=== PATIENT | female | born 1945 | race African-American/Black ===

== ENCOUNTER 2017-09-28 09:13 | Emergency (ER) | payer OTHER, MEDICAID ==
[~2017-09-28] VITALS: Ht 162.6 cm; Wt 65.0 kg
[2017-09-28] MEDS ORDERED: OXYCODONE HCL/ACETAMINOPHEN 5/325MG TABLET PO ONE (09:45)
[2017-09-28 11:00] VITALS: BP 140/82
== END 2017-09-28 11:19 | disposition home or self-care (01) ==
LOC: ER 09:21
DX: M54.2 Cervicalgia (principal); E11.9 Type 2 diabetes mellitus without complications; I10 Essential (primary) hypertension; V49.9XXA Car occupant (driver) (passenger) injured in unspecified traffic accident, initial encounter; Y93.9 Activity, unspecified; Y92.410 Unspecified street and highway as the place of occurrence of the external cause
CPT/HCPCS: 72125; 99284

== ENCOUNTER 2021-08-10 18:16 | Inpatient (IN) | payer MEDICAID, OTHER ==
[~2021-08-10] VITALS: Ht 170.2 cm; Wt 100.0 kg
[2021-08-10] MEDS ORDERED: ASPIRIN 325MG TABLET PO ONE (22:00)
[2021-08-10 22:32] LABS: HEMATOCRIT. 37.1 % (36.0-48.0); HEMOGLOBIN. 11.8 g/dL (12.0-16.0); LYMPHOCYTES % 9.4 % (20.0-50.0); MEAN CORPUSCULAR HEMOGLOBIN 29.6 pg (28.0-32.0); MEAN PLATELET VOLUME 7.8 fl (7.4-10.4); MONOCYTES % 5.4 % (2.0-8.0); NEUTROPHILS % 83.2 % (40.0-76.0); PLATELET 214 x1000/uL (130-400); RED BLOOD CELL COUNT 3.99 mill/uL (4.2-5.4); RED CELL DISTRIBUTION WIDTH 16.9 % (11.6-14.6)
[2021-08-10 22:41] LABS: PROTHROMBIN TIME 10.3 sec (9.6-11.0)
[2021-08-10 22:46] LABS: CHLORIDE 107 mEq/L (98-107)
[2021-08-11] MEDS ORDERED: ACETAMINOPHEN 325MG TABLET PO SCH (01:00)
[2021-08-11 07:00] VITALS: BP 183/77
== END 2021-08-11 08:58 | disposition left against medical advice (07) | DRG 280 ==
LOC: ER 18:16 → MICUSO 08-11 01:19 → EDBEDREQDT 08-11 01:23 → EDBEDREQTM 08-11 01:23 → EDBEDREQ 08-11 01:23 → CANBEDREQ 08-11 07:55 → MICUSO 08-11 08:53 → 7EST 08-11 08:54 → MICUSO 08-11 08:55
PROVIDERS: ADMIT Internal Medicine; ATTEND Internal Medicine
DX: I21.4 Non-ST elevation (NSTEMI) myocardial infarction (principal); J96.00 Acute respiratory failure, unspecified whether with hypoxia or hypercapnia; N18.6 End stage renal disease; E44.1 Mild protein-calorie malnutrition; I13.11 Hypertensive heart and chronic kidney disease without heart failure, with stage 5 chronic kidney disease, or end stage renal disease; E11.22 Type 2 diabetes mellitus with diabetic chronic kidney disease; E78.5 Hyperlipidemia, unspecified; R74.01 Elevation of levels of liver transaminase levels; E87.70 Fluid overload, unspecified; D64.9 Anemia, unspecified; Z53.29 Procedure and treatment not carried out because of patient's decision for other reasons; F41.9 Anxiety disorder, unspecified; Z99.2 Dependence on renal dialysis; Z82.49 Family history of ischemic heart disease and other diseases of the circulatory system; Z83.3 Family history of diabetes mellitus; Z68.34 Body mass index [BMI] 34.0-34.9, adult; R79.89 Other specified abnormal findings of blood chemistry
CPT/HCPCS: 36415; 71045; 80053; 83880; 84484; 85025; 93005; 99285

== ENCOUNTER 2023-09-26 23:15 | Inpatient (IN) | payer OTHER, MEDICARE ==
[~2023-09-26] VITALS: Ht 160 cm; Wt 63.0 kg
[2023-09-26] MEDS ORDERED: ADENOSINE 3 MG/ML 2ML VIAL IV ONE (23:45)
[2023-09-26] MEDS ORDERED: ASPIRIN 81MG TABLET PO ONE (23:45)
[2023-09-27] MEDS ORDERED: ADENOSINE 3 MG/ML 2ML VIAL IV ONE (00:30)
[2023-09-27 00:32] LABS: BASOPHILS % 2.8 % (0.0-2.0); EOSINOPHILS % 5.7 % (0.0-5.0); HEMOGLOBIN. 11.7 g/dL (12.0-16.0); LYMPHOCYTES % 15.4 % (20.0-50.0); MEAN CORPUSCULAR HEMOGLOBIN 31.2 pg (28.0-32.0); MEAN CORPUSCULAR HGB CONC 31.6 g/dL (31.0-37.0); MEAN CORPUSCULAR VOLUME 98.8 fL (81.0-99.0); MEAN PLATELET VOLUME 9.3 fl (7.4-10.4); NEUTROPHILS % 69.1 % (40.0-76.0); PLATELET 159 x1000/uL (130-400); RED BLOOD CELL COUNT 3.75 mill/uL (4.2-5.4); RED CELL DISTRIBUTION WIDTH 14.5 % (11.6-14.6); WHITE BLOOD COUNT 4.5 x1000/uL (4.5-11.0)
[2023-09-27 02:23] LABS: SODIUM 139 mEq/L (136-145)
[2023-09-27 02:24] LABS: CARBON DIOXIDE 28 mEq/L (21-32); CHLORIDE 101 mEq/L (98-107); GLUCOSE 197 mg/dL (70-105); POTASSIUM 4.8 mEq/L (3.5-5.1); UREA NITROGEN BLOOD 62 mg/dL (9-23)
[2023-09-27 02:25] LABS: ALBUMIN 3.9 g/dL (3.2-4.8); ASPARTATE AMINOTRANSFERASE 56 IU/L (<34); BILIRUBIN TOTAL 0.3 mg/dL (0.1-1.0); CALCIUM 8.6 mg/dL (8.7-10.4); PROTEIN TOTAL 7.3 g/dL (6.0-8.3)
[2023-09-27 02:26] LABS: ALANINE AMINOTRANSFERASE 40 IU/L (10-49)
[2023-09-27 02:35] LABS: TROPONIN I HIGH SENSITIVITY 41 ng/L (3.0-34)
[2023-09-27] MEDS ORDERED: MORPHINE SULFATE 2 MG/ML CPJ (NOT FOR IM USE) IV ONE (04:00)
[2023-09-27] MEDS ORDERED: IPRATROPIUM/ALBUTEROL 0.5-3(2.5)MG/3ML NEB HHN NR (04:15)
[2023-09-27] MEDS ORDERED: ONDANSETRON HCL 4MG/2ML INJ IV PRN (04:30)
[2023-09-27] MEDS ORDERED: IPRATROPIUM/ALBUTEROL 0.5-3(2.5)MG/3ML NEB HHN PRN (04:30)
[2023-09-27] MEDS ORDERED: MAGNESIUM/ALUMINUM HYDROXIDE/SIMETHICONE 30ML UDC PO PRN (04:30)
[2023-09-27] MEDS ORDERED: DOCUSATE SODIUM 100MG CAPSULE PO PRN (04:30)
[2023-09-27] MEDS ORDERED: ACETAMINOPHEN 650MG/20.3ML UDC GT PRN ×2 (04:30)
[2023-09-27] MEDS ORDERED: CLONIDINE 0.1MG TABLET PO PRN (04:30)
[2023-09-27] MEDS ORDERED: NITROGLYCERIN 0.4MG TABLET SL SL PRN (04:45)
[2023-09-27 04:50] VITALS: PULSE 81; RESP 18
[2023-09-27] MEDS ORDERED: DEXTROSE 50% WATER 50ML SYRINGE IV PRN (05:00)
[2023-09-27 05:18] LABS: INR 1.1; PROTHROMBIN TIME 11.4 sec (9.6-11.0)
[2023-09-27] MEDS: IPRATROPIUM/ALBUTEROL 0.5-3(2.5)MG/3ML NEB HHN SCH ×2 (05:23→20:44)
[2023-09-27] MEDS ORDERED: ENOXAPARIN 60MG/0.6ML SYR SUBCUT NR (05:30)
[2023-09-27] MEDS ORDERED: PANTOPRAZOLE 40MG DR TABLET PO SCH (06:30)
[2023-09-27 08:00] VITALS: BP_SYST 138; BP_DIAS 55; BP_DIAS 56; PULSE 61; PULSE 69; RESP 18; TEMP 97.3; TEMP 97.5
[2023-09-27 08:21] LABS: CREATINE KINASE 151 IU/L (34-145); IRON 32 ug/dL (50-170); TOTAL IRON BINDING CAPACITY 128 ug/dl (250-425)
[2023-09-27 08:56] LABS: TROPONIN I HIGH SENSITIVITY 2946 ng/L (3.0-34)
[2023-09-27] MEDS: BLOOD SUGAR DIAGNOSTIC STRIP TEST SCH ×4 (09:00→21:18)
[2023-09-27] MEDS ORDERED: ASPIRIN 81MG EC TABLET PO SCH (09:00)
[2023-09-27] MEDS: ASPIRIN 81MG TABLET PO SCH (10:12)
[2023-09-27] MEDS: CLOPIDOGREL 75MG TABLET PO SCH (10:12)
[2023-09-27] MEDS: METOPROLOL SUCCINATE 50MG ER TABLET PO SCH (11:19)
[2023-09-27 12:00] VITALS: BP 107/60; PULSE 67; RESP 18; TEMP 99.5
[2023-09-27 16:00] VITALS: BP 120/65; PULSE 153; RESP 16; TEMP 98.1
[2023-09-27] MEDS ORDERED: ADENOSINE 3 MG/ML 2ML VIAL IV NR ×2 (16:00→17:00)
[2023-09-27 17:47] LABS: HEPATITIS A AB IGM NEGATIVE (Negative); HEPATITIS B CORE AB IGM NEGATIVE (Negative); HEPATITIS B SURFACE ANTIGEN NEGATIVE (Negative); HEPATITIS C AB NON REACTIVE (Neg) (Negative)
[2023-09-27 18:46] LABS: TROPONIN I HIGH SENSITIVITY 4306 ng/L (3.0-34)
[2023-09-27 20:33] VITALS: PULSE 105; RESP 20; O2SAT 100
[2023-09-27 20:51] VITALS: BP 100/77; PULSE 63; RESP 18; TEMP 98.4
[2023-09-27] MEDS: INSULIN LISPRO 100 UNITS/ML SUBCUT SCH (21:00)
[2023-09-27] MEDS ORDERED: FAMOTIDINE 20MG TABLET PO SCH (21:00)
[2023-09-27 21:31] LABS: TROPONIN I HIGH SENSITIVITY 2941 ng/L (3.0-34)
[2023-09-27] MEDS: GUAIFENESIN 200MG/10ML SUGAR FREE UDC PO PRN (21:36)
[2023-09-27] MEDS: ATORVASTATIN CALCIUM 40MG TABLET PO SCH (21:37)
[2023-09-28] VITALS (16 sets, daily range): BP systolic 100–138; BP diastolic 44–95; PULSE 60–82; RESP 17–24; TEMP 96.6–99.9; O2SAT 94
[2023-09-28] MEDS: IPRATROPIUM/ALBUTEROL 0.5-3(2.5)MG/3ML NEB HHN SCH ×3 (01:42→20:47)
[2023-09-28] MEDS: BLOOD SUGAR DIAGNOSTIC STRIP TEST SCH ×4 (06:28→21:29)
[2023-09-28] MEDS: GUAIFENESIN 200MG/10ML SUGAR FREE UDC PO PRN ×2 (06:28→21:29)
[2023-09-28 06:40] LABS: HEMATOCRIT. 35.4 % (36.0-48.0); HEMOGLOBIN. 11.6 g/dL (12.0-16.0); MEAN CORPUSCULAR HEMOGLOBIN 31.4 pg (28.0-32.0); MEAN CORPUSCULAR HGB CONC 32.7 g/dL (31.0-37.0); MEAN CORPUSCULAR VOLUME 96.1 fL (81.0-99.0); MEAN PLATELET VOLUME 9.5 fl (7.4-10.4); PLATELET 134 x1000/uL (130-400); RED BLOOD CELL COUNT 3.69 mill/uL (4.2-5.4); RED CELL DISTRIBUTION WIDTH 14.8 % (11.6-14.6); WHITE BLOOD COUNT 5.3 x1000/uL (4.5-11.0)
[2023-09-28 07:00] LABS: ALANINE AMINOTRANSFERASE 26 IU/L (10-49); ALBUMIN 3.5 g/dL (3.2-4.8); ASPARTATE AMINOTRANSFERASE 25 IU/L (<34); BILIRUBIN TOTAL 0.2 mg/dL (0.1-1.0); CALCIUM 8.7 mg/dL (8.7-10.4); CARBON DIOXIDE 23 mEq/L (21-32); CHLORIDE 102 mEq/L (98-107); CHOLESTEROL 84 mg/dL (<200); CREATINE KINASE MB FRACTION 5.3 ng/mL (0.5-3.6); GLUCOSE 106 mg/dL (70-105); HDL CHOLESTEROL 37 mg/dL (>65); LDL CHOLESTEROL 25 mg/dL (5-100); POTASSIUM 5.3 mEq/L (3.5-5.1); PROTEIN TOTAL 6.6 g/dL (6.0-8.3); SODIUM 140 mEq/L (136-145); T4 FREE 0.75 ng/dL (0.89-1.76); THYROID STIMULATING HORMONE 2.46 uIU/mL (0.55-4.78); TRIGLYCERIDE 65 mg/dL (0-150); UREA NITROGEN BLOOD 72 mg/dL (9-23)
[2023-09-28 07:38] LABS: CREATININE 11.3 mg/dL (0.6-1.0)
[2023-09-28] MEDS: INSULIN LISPRO 100 UNITS/ML SUBCUT SCH ×4 (08:10→21:00)
[2023-09-28 08:37] LABS: DIFFERENTIAL COMMENT 1
[2023-09-28] MEDS: ASPIRIN 81MG TABLET PO SCH (09:55)
[2023-09-28] MEDS: CLOPIDOGREL 75MG TABLET PO SCH (09:56)
[2023-09-28] MEDS: METOPROLOL SUCCINATE 50MG ER TABLET PO SCH (09:56)
[2023-09-28] MEDS: ENOXAPARIN 60MG/0.6ML SYR SUBCUT SCH (09:57)
[2023-09-28] MEDS ORDERED: AZITHROMYCIN 500MG/250ML 250 ML IV ONE (12:45)
[2023-09-28] MEDS ORDERED: AZITHROMYCIN 500MG in DEXTROSE 5% WATER 250ML IV SCH (14:00)
[2023-09-28] MEDS ORDERED: LOPERAMIDE HCL 2MG CAPSULE PO NR (14:30)
[2023-09-28 15:14] LABS: PLATELET ESTIMATE NORMAL
[2023-09-28] MEDS ORDERED: NITROGLYCERIN 0.4MG TABLET SL SL PRN (16:30)
[2023-09-28] MEDS ORDERED: LOPERAMIDE HCL 2MG CAPSULE PO PRN (16:30)
[2023-09-28] MEDS ORDERED: BENZ100C86 PO (16:34)
[2023-09-28] MEDS ORDERED: SEVE800T8 PO (16:51)
[2023-09-28] MEDS ORDERED: ATOR40TA70 PO (16:51)
[2023-09-28] MEDS ORDERED: NITR0.4T49 SL (16:51)
[2023-09-28] MEDS ORDERED: LOSA100T33 PO (16:51)
[2023-09-28] MEDS ORDERED: ALBU18HF2 PO (16:51)
[2023-09-28] MEDS ORDERED: METO-396 PO (16:51)
[2023-09-28] MEDS ORDERED: FURO80TA3 PO (16:51)
[2023-09-28] MEDS ORDERED: HYDROXYZINE 25MG TABLET PO PRN (17:00)
[2023-09-28] MEDS ORDERED: BISMUTH SUBSALICYLATE 262 MG/15 ML-120ML BOTTLE PO PRN (17:30)
[2023-09-28] MEDS: BENZONATATE 100MG CAPSULE PO SCH (18:17)
[2023-09-28] MEDS: BUDESONIDE 0.5MG/2ML NEB HHN SCH (20:47)
[2023-09-28] MEDS: ATORVASTATIN CALCIUM 40MG TABLET PO SCH (21:29)
[2023-09-28 22:32] LABS: TROPONIN I HIGH SENSITIVITY 3271 ng/L (3.0-34)
[2023-09-29] VITALS (7 sets, daily range): BP systolic 130–143; BP diastolic 49–101; PULSE 68–127; RESP 17–20; TEMP 97.5–97.9
[2023-09-29] MEDS: IPRATROPIUM/ALBUTEROL 0.5-3(2.5)MG/3ML NEB HHN SCH ×3 (02:48→21:51)
[2023-09-29] MEDS: BLOOD SUGAR DIAGNOSTIC STRIP TEST SCH ×4 (06:35→20:50)
[2023-09-29 07:15] LABS: BASOPHILS % 1.2 % (0.0-2.0); EOSINOPHILS % 5.6 % (0.0-5.0); HEMATOCRIT. 34.4 % (36.0-48.0); HEMOGLOBIN. 10.7 g/dL (12.0-16.0); LYMPHOCYTES % 21.7 % (20.0-50.0); MEAN CORPUSCULAR HEMOGLOBIN 30.9 pg (28.0-32.0); MEAN CORPUSCULAR HGB CONC 31.2 g/dL (31.0-37.0); MEAN CORPUSCULAR VOLUME 98.9 fL (81.0-99.0); MEAN PLATELET VOLUME 9.2 fl (7.4-10.4); MONOCYTES % 12.9 % (2.0-8.0); NEUTROPHILS % 58.6 % (40.0-76.0); PLATELET 126 x1000/uL (130-400); RED BLOOD CELL COUNT 3.47 mill/uL (4.2-5.4); RED CELL DISTRIBUTION WIDTH 15.2 % (11.6-14.6); WHITE BLOOD COUNT 4.6 x1000/uL (4.5-11.0)
[2023-09-29] MEDS ORDERED: VERAPAMIL HCL 2.5 MG/1 ML 2ML VIAL IV ONE (08:06)
[2023-09-29] MEDS ORDERED: IODIXANOL 320MG/ML 100 ML BOTTLE IV ONE (08:06)
[2023-09-29] MEDS ORDERED: LIDOCAINE HCL 1% 20ML VIAL (Pyxis) INJ ONE (08:06)
[2023-09-29] MEDS ORDERED: DIPHENHYDRAMINE 50MG/ML VIAL ONE (08:06)
[2023-09-29] MEDS ORDERED: HEPARIN 1000 UNITS/ML 10ML ONE (08:07)
[2023-09-29] MEDS: INSULIN LISPRO 100 UNITS/ML SUBCUT SCH ×4 (08:10→20:51)
[2023-09-29] MEDS ORDERED: MIDAZOLAM HCL 2 MG/2 ML VIAL ONE (08:38)
[2023-09-29] MEDS ORDERED: FENTANYL CITRATE/PF 50MCG/ML 2ML VIAL ONE (08:39)
[2023-09-29 08:46] LABS: CALCIUM 8.4 mg/dL (8.7-10.4); CARBON DIOXIDE 24 mEq/L (21-32); CHLORIDE 101 mEq/L (98-107); GLUCOSE 104 mg/dL (70-105); PHOSPHORUS 5.2 mg/dL (2.5-4.9); POTASSIUM 5.1 mEq/L (3.5-5.1); SODIUM 139 mEq/L (136-145); UREA NITROGEN BLOOD 43 mg/dL (9-23)
[2023-09-29] MEDS: ENOXAPARIN 60MG/0.6ML SYR SUBCUT SCH (09:00)
[2023-09-29] MEDS: ASPIRIN 81MG TABLET PO SCH (09:00)
[2023-09-29] MEDS: CLOPIDOGREL 75MG TABLET PO SCH (09:00)
[2023-09-29] MEDS: METOPROLOL SUCCINATE 50MG ER TABLET PO SCH (09:00)
[2023-09-29] MEDS: BENZONATATE 100MG CAPSULE PO SCH ×3 (09:00→17:16)
[2023-09-29 09:02] LABS: CREATININE 9.9 mg/dL (0.6-1.0)
[2023-09-29] MEDS ORDERED: ACETAMINOPHEN 325MG TABLET PO PRN (10:00)
[2023-09-29] MEDS ORDERED: ATROPINE SULFATE 1MG/10ML SYR IV PRN (10:00)
[2023-09-29 12:25] LABS: TROPONIN I HIGH SENSITIVITY 2363 ng/L (3.0-34)
[2023-09-29] MEDS ORDERED: SODIUM POLYSTYRENE SULFONATE 15 G/60 ML BOT PO NR (14:30)
[2023-09-29] MEDS: BUDESONIDE 0.5MG/2ML NEB HHN SCH ×2 (15:08→21:51)
[2023-09-29] MEDS ORDERED: HYDROCODONE/ACETAMINOPHEN 5/325MG TABLET PO NR (17:00)
[2023-09-29] MEDS ORDERED: NALOXONE HCL 0.4MG/ML VIAL IV PRN (17:00)
[2023-09-29] MEDS: ATORVASTATIN CALCIUM 40MG TABLET PO SCH (20:55)
[2023-09-29] MEDS ORDERED: FAMOTIDINE 20MG TABLET PO SCH (21:00)
[2023-09-30] VITALS (19 sets, daily range): BP systolic 105–131; BP diastolic 46–69; PULSE 71–168; RESP 15–35; TEMP 96.9–98.6; O2SAT 97–98
[2023-09-30] MEDS: IPRATROPIUM/ALBUTEROL 0.5-3(2.5)MG/3ML NEB HHN SCH ×4 (01:32→12:07)
[2023-09-30 03:54] LABS: POTASSIUM 5.3 mEq/L (3.5-5.1)
[2023-09-30] MEDS: BLOOD SUGAR DIAGNOSTIC STRIP TEST SCH ×4 (07:51→21:00)
[2023-09-30] MEDS: INSULIN LISPRO 100 UNITS/ML SUBCUT SCH ×4 (07:51→21:00)
[2023-09-30] MEDS: ASPIRIN 81MG TABLET PO SCH (08:29)
[2023-09-30] MEDS: BENZONATATE 100MG CAPSULE PO SCH ×3 (08:29→17:05)
[2023-09-30] MEDS: CLOPIDOGREL 75MG TABLET PO SCH (08:29)
[2023-09-30] MEDS: ENOXAPARIN 60MG/0.6ML SYR SUBCUT SCH (08:32)
[2023-09-30] MEDS: METOPROLOL SUCCINATE 50MG ER TABLET PO SCH (08:40)
[2023-09-30 09:26] LABS: BASOPHILS % 1.6 % (0.0-2.0); EOSINOPHILS % 2.2 % (0.0-5.0); HEMOGLOBIN. 10.2 g/dL (12.0-16.0); LYMPHOCYTES % 22.3 % (20.0-50.0); MEAN CORPUSCULAR HEMOGLOBIN 31.7 pg (28.0-32.0); MEAN CORPUSCULAR VOLUME 96.1 fL (81.0-99.0); MEAN PLATELET VOLUME 8.9 fl (7.4-10.4); MONOCYTES % 14.1 % (2.0-8.0); NEUTROPHILS % 59.8 % (40.0-76.0); PLATELET 145 x1000/uL (130-400); RED BLOOD CELL COUNT 3.22 mill/uL (4.2-5.4); RED CELL DISTRIBUTION WIDTH 14.9 % (11.6-14.6); WHITE BLOOD COUNT 4.9 x1000/uL (4.5-11.0)
[2023-09-30 09:35] LABS: CALCIUM 7.9 mg/dL (8.7-10.4); POTASSIUM 5.1 mEq/L (3.5-5.1)
[2023-09-30 10:05] LABS: CREATININE 10.8 mg/dL (0.6-1.0)
[2023-09-30] MEDS ORDERED: ADENOSINE 3 MG/ML 2ML VIAL IV SCH (10:30)
[2023-09-30] MEDS ORDERED: ADENOSINE 3 MG/ML 2ML VIAL IV NR (11:30)
[2023-09-30] MEDS ORDERED: AMIODARONE 150MG/100ML PREMIX 100 ML IV ONE (11:45)
[2023-09-30] MEDS: BUDESONIDE 0.5MG/2ML NEB HHN SCH ×2 (12:07→21:22)
[2023-09-30] MEDS ORDERED: AMIODARONE HCL 900 MG in DEXT 5% WATER 500 ML IV SCH (13:00)
[2023-09-30] MEDS: GUAIFENESIN 200MG/10ML SUGAR FREE UDC PO PRN (13:53)
[2023-09-30] MEDS ORDERED: HYDROCODONE/ACETAMINOPHEN 5/325MG TABLET PO PRN (16:30)
[2023-09-30] MEDS: IPRATROPIUM BROMIDE (0.02%) 0.5MG/2.5ML NEB HHN SCH ×2 (16:36→21:22)
[2023-09-30] MEDS: ATORVASTATIN CALCIUM 40MG TABLET PO SCH (20:56)
[2023-10-01] VITALS: BP 126/68; PULSE 141; RESP 24; TEMP 98.4
[2023-10-01 00:39] VITALS: PULSE 140; RESP 20; O2SAT 97
[2023-10-01] MEDS: IPRATROPIUM BROMIDE (0.02%) 0.5MG/2.5ML NEB HHN SCH (00:39)
[2023-10-01] MEDS ORDERED: METOPROLOL TARTRATE 50MG TABLET PO SCH (00:45)
[2023-10-01 02:00] VITALS: BP 104/61; PULSE 136; RESP 25
[2023-10-01 03:00] VITALS: BP 86/58; PULSE 132; RESP 16
[2023-10-01 03:05] VITALS: BP 96/60; PULSE 130; RESP 22
== END 2023-10-01 07:31 ==
LOC: ER 23:15 → MICUSO 09-27 04:26 → 7WST 09-27 08:51 → 5EST 09-30 12:50
PROVIDERS: ADMIT Internal Medicine; ATTEND Internal Medicine
PROC: 4A023N7 Measurement of Cardiac Sampling and Pressure, Left Heart, Percutaneous Approach (ICD-10-PCS; principal; 2023-09-29)
PROC: B211YZZ Fluoroscopy of Multiple Coronary Arteries using Other Contrast (ICD-10-PCS; 2023-09-29)
PROC: B215YZZ Fluoroscopy of Left Heart using Other Contrast (ICD-10-PCS; 2023-09-29)
PROC: B41FYZZ Fluoroscopy of Right Lower Extremity Arteries using Other Contrast (ICD-10-PCS; 2023-09-29)
DX: T82.855A Stenosis of coronary artery stent, initial encounter (principal); I21.A1 Myocardial infarction type 2; J96.00 Acute respiratory failure, unspecified whether with hypoxia or hypercapnia; N18.6 End stage renal disease; I47.10 Supraventricular tachycardia, unspecified; J45.901 Unspecified asthma with (acute) exacerbation; I42.9 Cardiomyopathy, unspecified; I50.20 Unspecified systolic (congestive) heart failure; I13.2 Hypertensive heart and chronic kidney disease with heart failure and with stage 5 chronic kidney disease, or end stage renal disease; Z99.2 Dependence on renal dialysis; Z66 Do not resuscitate; J45.909 Unspecified asthma, uncomplicated; E11.22 Type 2 diabetes mellitus with diabetic chronic kidney disease; Z20.822 Contact with and (suspected) exposure to COVID-19; D64.9 Anemia, unspecified; E11.65 Type 2 diabetes mellitus with hyperglycemia; E78.00 Pure hypercholesterolemia, unspecified; E87.5 Hyperkalemia; Y83.1 Surgical operation with implant of artificial internal device as the cause of abnormal reaction of the patient, or of later complication, without mention of misadventure at the time of the procedure; I48.91 Unspecified atrial fibrillation; I49.1 Atrial premature depolarization; I08.0 Rheumatic disorders of both mitral and aortic valves; I25.10 Atherosclerotic heart disease of native coronary artery without angina pectoris; I27.20 Pulmonary hypertension, unspecified
CPT/HCPCS: 36415; 71045; 80048; 80053; 80061; 82550; 82553; 82728; 82962; 83036; 83540; 83550; 83605; 83735; 83880; 84100; 84132; 84145; 84439; 84443; 84484; 85025; 85379; 86705; 86709; 87340; 87426; 87804; 90935; 93005; 93306; 93458; 94640; 97162; 99291; C1760; C1769; C1887; C1893; J0153; J0282; J0456; J0461; J1200; J1644; J1650; J1815; J2250; J2270; J2405; J3010; J3490; J7060; J7626; Q9967